=== PATIENT | female | born 1955 | race Caucasian/White ===

== ENCOUNTER 2021-10-08 12:41 | Emergency (ER) | payer OTHER, BC ==
[~2021-10-08] VITALS: Ht 154.9 cm; Wt 54.4 kg
[~2021-10-08 12:41] MED LIST: ADVAIR 250-501 EACH IH; ALBUTEROL INHAL17 GM IH; CLARITIN10 MG PO; FLEXERIL PO; FLONASE 0.05%50 MCG NS; INDOMETHACIN 2525 MG PO; K-DUR 20 MEQ T20 MEQ PO; KEFLEX500 MG PO; MAGNESIUM250 M1 PO; MAGNESIUM400 MG PO; MEDROL DOSPAK21 TA1 PO; NEXIUM40 MG PO; NORCO 5-325 TA1 EACH PO; NORFLEX100 MG PO; PHENERGAN 25 MG25 MG PO; PROAIR HFA8.5 GM IH; PROCTOFOAM-HC F10 GM RC; PROMETHAZI6.25 MG/5 PO; SERTRALINE HCL100 MG PO; TESSALON PERLE100 MG PO; TORADOL 10 MG T10 MG PO; VENTOLIN HFA 1818 GM INH; VISTARIL 25 MG25 M1 PO; XANAX XR1 MG PO; ZANTAC 150MG T150 MG; ZOFRAN ODT4 MG PO; ZPAK PO
[2021-10-08 13:40] LABS: URINE BILIRUBIN NEGATIVE (Negative); URINE BLOOD NEGATIVE (Negative); URINE CLARITY CLEAR; URINE COLOR YELLOW; URINE GLUCOSE-RANDOM* NEGATIVE (Negative); URINE KETONES NEGATIVE (Negative); URINE LEUKOCYTES-REFLEX NEGATIVE (Negative); URINE NITRITE-REFLEX NEGATIVE (Negative); URINE PROTEIN (DIPSTICK) NEGATIVE (Negative); URINE SPECIFIC GRAVITY <= 1.005 (1.005-1.035); URINE UROBILINOGEN 0.2 E.U./dl (0.2-1.0)
[2021-10-08 15:12] VITALS: BP 141/63
[2021-10-11] MEDS ORDERED: KLOR-CON M2020 MEQ PO (18:21)
[2021-10-11] MEDS ORDERED: FLEXERIL PO (20:33)
== END 2021-10-08 15:12 | disposition home or self-care (01) ==
LOC: ER 12:41
PROVIDERS: Physician Assistant
DX: M54.50 Low back pain, unspecified (principal); F17.210 Nicotine dependence, cigarettes, uncomplicated; K21.9 Gastro-esophageal reflux disease without esophagitis; G43.909 Migraine, unspecified, not intractable, without status migrainosus; Z88.6 Allergy status to analgesic agent; Z88.5 Allergy status to narcotic agent; Z88.0 Allergy status to penicillin; Z79.899 Other long term (current) drug therapy; Z90.89 Acquired absence of other organs